=== PATIENT | female | born 1990 | race Caucasian/White ===

== ENCOUNTER → 2020-03-20 | Outpatient (CLI) | payer OTHER ==
[2020-03-20 18:20] LABS: BASO % 0.6 % (0.0-1.0); EOS # 0.1 10^3/uL (0.0-0.5); EOS % 2.5 % (0.0-3.0); HEMATOCRIT 41.6 % (36.0-47.0); HEMOGLOBIN 13.5 g/dl (12.0-15.5); LYMPH # 1.2 10^3/uL (1.5-5.0); LYMPH % 33.9 % (24.0-44.0); MEAN CORPUSCULAR HEMOGLOBIN 30.1 pg (27.0-33.0); MEAN CORPUSCULAR HGB CONC 32.5 g/dl (32.0-36.5); MEAN CORPUSCULAR VOLUME 92.7 fl (80.0-96.0); MONO # 0.3 10^3/uL (0.0-0.8); NEUTROPHILS # 1.9 10^3/uL (1.5-8.5); NEUTROPHILS % 53.7 % (36.0-66.0); PLATELET COUNT, AUTOMATED 175 10^3/uL (150-450); RED BLOOD COUNT 4.49 10^6/uL (4.00-5.40); WHITE BLOOD COUNT 3.5 10^3/uL (4.0-10.0)
[2020-03-20 18:26] LABS: ALBUMIN 3.9 GM/DL (3.2-5.2); ALT/SGPT 27 U/L (12-78); BILIRUBIN,TOTAL 0.4 MG/DL (0.2-1.0); BLOOD UREA NITROGEN 14 MG/DL (7-18); CALCIUM LEVEL 8.5 MG/DL (8.5-10.1); CARBON DIOXIDE LEVEL 26 MEQ/L (21-32); CHLORIDE LEVEL 110 MEQ/L (98-107); CHOLESTEROL LEVEL 171 MG/DL (<200); CHOLESTEROL RISK RATIO 2.035 (<5); CREATININE FOR GFR 0.75 MG/DL (0.55-1.30); FREE T4 0.95 NG/DL (0.76-1.46); GLOMERULAR FILTRATION RATE > 60.0 (>60); GLUCOSE, FASTING 86 MG/DL (70-100); HDL CHOLESTEROL 84 MG/DL (>40); LDL CHOLESTEROL 80 MG/DL (<100); NON-HDL-C 87 MG/DL; POTASSIUM SERUM 4.6 MEQ/L (3.5-5.1); SODIUM LEVEL 141 MEQ/L (136-145); TOTAL PROTEIN 7.1 GM/DL (6.4-8.2); TRIGLYCERIDES LEVEL 34 MG/DL (<150)
== END ==
LOC: M WUC 09:05
PROVIDERS: ATTEND Nurse Practitioner Family
DX: Z00.00 Encounter for general adult medical examination without abnormal findings (principal)

== ENCOUNTER → 2020-05-05 | Outpatient (CLI) | payer OTHER ==
[2020-06-09 13:43] LABS: ANTINUCLEAR ANTIBODIES DIRECT See Separate Report
[2020-06-09 13:44] LABS: ANTI-NEUTROPHIL ASSOCIATED ABY See Separate Report
[2020-06-23 13:26] LABS: FOLATE > 24.0 NG/ML; RHEUMATOID FACTOR QUANT < 10.0 IU/ML (<15.0); TOTAL PROTEIN 7.7 GM/DL (6.4-8.2); VITAMIN B12 LEVEL 430 PG/ML
[2020-06-24 11:17] LABS: BASO % 0.3 % (0.0-1.0); EOS # 0.1 10^3/uL (0.0-0.5); HEMATOCRIT 43.1 % (36.0-47.0); HEMOGLOBIN 14.3 g/dl (12.0-15.5); LYMPH # 1.6 10^3/uL (1.5-5.0); LYMPH % 27.4 % (24.0-44.0); MEAN CORPUSCULAR HEMOGLOBIN 30.7 pg (27.0-33.0); MEAN CORPUSCULAR HGB CONC 33.2 g/dl (32.0-36.5); MEAN CORPUSCULAR VOLUME 92.5 fl (80.0-96.0); MONO # 0.4 10^3/uL (0.0-0.8); MONO % 6.8 % (0.0-5.0); NEUTROPHILS # 3.8 10^3/uL (1.5-8.5); NEUTROPHILS % 64.2 % (36.0-66.0); PLATELET COUNT, AUTOMATED 189 10^3/uL (150-450); RED BLOOD COUNT 4.66 10^6/uL (4.00-5.40); WHITE BLOOD COUNT 5.9 10^3/uL (4.0-10.0)
== END ==
LOC: M LAB 11:38
PROVIDERS: ATTEND Allergy & Immunology Allergy
DX: D70.9 Neutropenia, unspecified (principal)

== ENCOUNTER → 2020-05-19 | Outpatient (REF) | payer OTHER ==
[2020-06-29 13:56] LABS: CHLAMYDIA DNA AMPLIFICATION NEGATIVE (NEGATIVE); GC DNA AMPLIFICATION NEGATIVE (NEGATIVE)
== END ==
LOC: M SFHCWAGY 11:46
PROVIDERS: ATTEND Advanced Practice Midwife
DX: Z12.4 Encounter for screening for malignant neoplasm of cervix (principal)

== ENCOUNTER → 2020-12-02 | Outpatient (REF) | payer OTHER ==
[2020-12-02 13:56] LABS: HEMOGLOBIN 13.9 g/dl (12.0-15.5); MEAN CORPUSCULAR HEMOGLOBIN 30.7 pg (27.0-33.0); MEAN CORPUSCULAR HGB CONC 33.9 g/dl (32.0-36.5); MEAN CORPUSCULAR VOLUME 90.5 fl (80.0-96.0); PLATELET COUNT, AUTOMATED 186 10^3/uL (150-450); RED BLOOD COUNT 4.53 10^6/uL (4.00-5.40); WHITE BLOOD COUNT 8.5 10^3/uL (4.0-10.0)
[2020-12-02 14:37] LABS: ALBUMIN 3.9 GM/DL (3.2-5.2); ALT/SGPT 25 U/L (12-78); BILIRUBIN,TOTAL 0.2 MG/DL (0.2-1.0); BLOOD UREA NITROGEN 13 MG/DL (7-18); CALCIUM LEVEL 8.7 MG/DL (8.5-10.1); CARBON DIOXIDE LEVEL 26 MEQ/L (21-32); CHLORIDE LEVEL 103 MEQ/L (98-107); CREATININE FOR GFR 0.58 MG/DL (0.55-1.30); FREE T4 1.09 NG/DL (0.76-1.46); GLOMERULAR FILTRATION RATE > 60.0 (>60); GLUCOSE, FASTING 83 MG/DL (70-100); POTASSIUM SERUM 4.3 MEQ/L (3.5-5.1); SODIUM LEVEL 134 MEQ/L (136-145); TOTAL PROTEIN 6.9 GM/DL (6.4-8.2)
[2020-12-02 15:19] LABS: HEPATITIS C VIRUS ABY INDEX < 0.0 INDEX (<0.8); HIV 1&2 SCREEN CENTAUR NEGATIVE (NEGATIVE)
== END ==
LOC: M PLALAB 10:27
PROVIDERS: ATTEND Advanced Practice Midwife
DX: Z3A.08 8 weeks gestation of pregnancy (principal)

== ENCOUNTER → 2021-02-25 | Outpatient (CLI) | payer OTHER ==
--- NOTE | 2021-02-25 08:32 | REP ---
INDICATION: ANATOMY COMPARISON: None. TECHNIQUE: Transabdominal obstetrical ultrasound with color Doppler evaluation. FINDINGS: Examination demonstrates a single live intrauterine in breech presentation. motion is identified by technologist. Placenta is noted posterior and grade 1 without evidence for placenta previa or abruption. Amniotic fluid volume is normal. Cervix measures 4.2 cm in length and appears closed.. Gestational age by LMP 20 weeks 2 days with IWONA 07/13/2021. Gestational age by current measurements 21 weeks 0 days with IWONA 07/08/2021. FHR equals 130 beats per minute. Estimated weight 381 grams (76thpercentile). Anatomical assessment demonstrates normal structures including cranium, choroid plexus, cavum, cerebellum/posterior fossa, facial features, lungs, four-chamber heart/ventricular outflow tracts, diaphragm, stomach, cord insertion/three-vessel cord, kidneys/bladder, spine, and extremities. IMPRESSION: Single live intrauterine in breech presentation demonstrating appropriate estimated weight. Anatomical assessment is complete and normal. No gross abnormalities are identified. <Electronically signed by Aidan Bansal > 02/25/21 [id number]
== END ==
LOC: M WHC 07:28
PROVIDERS: ATTEND Advanced Practice Midwife
DX: O26.892 Other specified pregnancy related conditions, second trimester (principal); O32.1XX0 Maternal care for breech presentation, not applicable or unspecified; Z3A.20 20 weeks gestation of pregnancy
CPT/HCPCS: 76811; G0463

== ENCOUNTER → 2021-04-25 | Outpatient (CLI) | payer OTHER ==
[2021-04-25 13:35] LABS: HEMATOCRIT 37.9 % (36.0-47.0); HEMOGLOBIN 12.7 g/dl (12.0-15.5); MEAN CORPUSCULAR HEMOGLOBIN 31.6 pg (27.0-33.0); MEAN CORPUSCULAR HGB CONC 33.5 g/dl (32.0-36.5); MEAN CORPUSCULAR VOLUME 94.3 fl (80.0-96.0); PLATELET COUNT, AUTOMATED 145 10^3/uL (150-450); RED BLOOD COUNT 4.02 10^6/uL (4.00-5.40); WHITE BLOOD COUNT 8.6 10^3/uL (4.0-10.0)
== END ==
LOC: M PLALAB 09:49
PROVIDERS: ATTEND Advanced Practice Midwife
DX: Z34.02 Encounter for supervision of normal first pregnancy, second trimester (principal); Z3A.00 Weeks of gestation of pregnancy not specified
CPT/HCPCS: 36415; 82950; 85027; 86850; 86900; 86901; G0463

== ENCOUNTER → 2021-05-02 | Outpatient (CLI) | payer OTHER | LOC: M LAB 07:09 | PROVIDERS: ATTEND Advanced Practice Midwife | DX: O99.810 Abnormal glucose complicating pregnancy (principal) ==

== ENCOUNTER → 2021-06-09 | Outpatient (REF) | payer OTHER ==
[~2021-06-09] MED LIST: IBUP80TA PO; MIRA3350 PO; PERCOCET PO; PRENTAB9 PO
== END ==
LOC: M SFHCWAGY 16:47
PROVIDERS: ATTEND Obstetrics & Gynecology
DX: Z34.03 Encounter for supervision of normal first pregnancy, third trimester (principal); Z36.85 Encounter for antenatal screening for Streptococcus B
CPT/HCPCS: 87081; 87186; G0463

== ENCOUNTER → 2021-06-22 | Outpatient (CLI) | payer OTHER ==
--- NOTE | 2021-06-23 18:30 | REP ---
INDICATION: GROWTH/UTERIN E SIZE DATE DISCREPANCY COMPARISON: 02/25/2021 TECHNIQUE: Transabdominal obstetrical ultrasound with color Doppler evaluation. FINDINGS: Examination demonstrates a single live intrauterine in cephalic presentation. motion is identified by technologist. Placenta is noted posterior and grade 2 without evidence for placenta previa or abruption. Amniotic fluid volume is greater than normal range suggesting polyhydramnios. Selected gestational age: 37 weeks 0 days with IWONA 07/13/2021. Gestational age by current measurements 37 weeks 4 days with IWONA 07/09/2021. FHR equals 155 beats per minute. BPD: 9.0 cm at 36 weeks 3 days HC: 33.3 cm at 38 weeks 0 days AC: 35.9 cm at 39 weeks 6 days FL: 7.1 cm at 36 weeks 1 day HL: 6.4 cm at 37 weeks 0 days HC/AC: 0.93 Estimated weight 3481 grams (88thpercentile). TERI: 27.9 cm (7.5-24.4) Umbilical artery SD ratio: 1.87 (1.59-3.43) IMPRESSION: Single live advanced gestation in cephalic presentation demonstrating appropriate estimated weight. Polyhydramnios suggested. <Electronically signed by Aidan Bansal > 06/23/21 [id number]
== END ==
LOC: M WHC 10:25
PROVIDERS: ATTEND Advanced Practice Midwife
DX: O26.843 Uterine size-date discrepancy, third trimester (principal); Z36.89 Encounter for other specified antenatal screening; Z3A.37 37 weeks gestation of pregnancy

== ENCOUNTER → 2021-06-22 | Outpatient (CLI) | payer OTHER ==
[2021-06-22 13:30] LABS: HEMATOCRIT 38.1 % (36.0-47.0); HEMOGLOBIN 12.8 g/dl (12.0-15.5); MEAN CORPUSCULAR HEMOGLOBIN 31.9 pg (27.0-33.0); MEAN CORPUSCULAR HGB CONC 33.6 g/dl (32.0-36.5); PLATELET COUNT, AUTOMATED 166 10^3/uL (150-450); RED BLOOD COUNT 4.01 10^6/uL (4.00-5.40)
== END ==
LOC: M PLALAB 10:47
PROVIDERS: ATTEND Advanced Practice Midwife
DX: Z36.89 Encounter for other specified antenatal screening (principal)

== ENCOUNTER 2021-07-08 10:59 | Inpatient (IN) | payer OTHER ==
[2021-07-08] VITALS (25 sets, daily range): BP systolic 129–177; BP diastolic 76–95
[~2021-07-08] VITALS: Ht 160 cm; Wt 86.1 kg
[2021-07-08] MEDS ORDERED: PRENTAB9 PO (11:27)
[2021-07-08] MEDS ORDERED: MIRA3350 PO (11:27)
[2021-07-08] MEDS ORDERED: HOME MED LIST COMPLETE! XX SCH (11:30)
[2021-07-08] MEDS ORDERED: PENICILLIN G POTASSIUM IV 5 MU in D5W MINI-BAG PLUS 100 ML IV STA ×2 (11:52→13:27)
[2021-07-08] MEDS ORDERED: LACTATED RINGER'S 1000 ML IV STA (11:52)
[2021-07-08] MEDS ORDERED: CARBOPROST TROMETHAMINE 250 MCG/ML AMP IM PRN (11:55)
[2021-07-08] MEDS ORDERED: TRANEXAMIC ACID INJection 1,000 MG in NS 100 ML IV PRN (11:55)
[2021-07-08] MEDS ORDERED: LIDOCAINE 1% MDV 20ML VIAL INFIL PRN (11:55)
[2021-07-08] MEDS ORDERED: METHYLERGONOVINE MALEATE 0.2 MG/ML VIAL (J2210) IM PRN (11:55)
[2021-07-08] MEDS ORDERED: OXYTOCIN DRIP 30 UNITS in IV 1 EA IV PRN (11:55)
[2021-07-08 12:34] LABS: HEMATOCRIT 36.3 % (36.0-47.0); HEMOGLOBIN 12.5 g/dl (12.0-15.5); MEAN CORPUSCULAR HEMOGLOBIN 31.7 pg (27.0-33.0); MEAN CORPUSCULAR HGB CONC 34.4 g/dl (32.0-36.5); MEAN CORPUSCULAR VOLUME 92.1 fl (80.0-96.0); PLATELET COUNT, AUTOMATED 135 10^3/uL (150-450); RED BLOOD COUNT 3.94 10^6/uL (4.00-5.40); WHITE BLOOD COUNT 10.8 10^3/uL (4.0-10.0)
[2021-07-08 13:06] LABS: ALT/SGPT 24 U/L (12-78); BILIRUBIN,TOTAL 0.3 MG/DL (0.2-1.0); CREATININE FOR GFR 0.51 MG/DL (0.55-1.30); GLOMERULAR FILTRATION RATE > 60.0 (>60); LDH LACTATE DEHYDROGENASE 190 U/L (84-246); URIC ACID 3.5 MG/DL (2.6-6.0)
[2021-07-08] MEDS ORDERED: OXYTOCIN DRIP 30 UNITS in IV 1 EA IV SCH (13:40)
--- NOTE | 2021-07-08 13:41 | HPEPDOC ---
Obstetrical History & Physical General Date of Admission Jul 08, 2021 at 10:59 Primary Care Physician: JENNA ANTUNEZ CNM History of Present Illness Asia is a 30-year-old female who is a at 39.2 weeks gestation with an IWONA of 07/13/21 based off of her LMP and consistent with her first trimester ult rasound. She initiated care in her first trimester of at [facility]. 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 She presents to labor and delivery after being seen in the office and being sent over for induction for polyhydramnios. Reports active movement. Denies leaking of fluid, vaginal bleeding and reports occasional cramping. Chief Complaint: Amniotic fluid index (Polyhdramnios) Information Provided By: Patient Age: 30 : 1 Term: 0 Pre-term: 0 Abortions: 0 Livin Care Care: Good Care Dating Final EDC: Jul 13, 2021 Final EDC by: LMP EGA at Admission: 39.2 Antepartum Course Diagnos(e)s GHTN diagnosed after admission Polyhydramnios Height (inches): 63 Pre- weight (lbs.): 139 Admission Weight (lbs.): 193 Change in Weight (lbs.): 54 Past Medical History Past Obstetrical History : Past Obstetrical History: Primgravida CREDIT AUTHORIZER History: Abnormal Pap, Human papillomavirus(HPV) Past Medical History Surgical History: Tonsilectomy (2019) Family History Significant Family History: Cancer (breast cancer-maternal aunt.) Social History Marital Status: Family situation: Spouse/partner home Psychosocial History: No pertinent psych hx * Smoker: non-smoker Alcohol: Denies Drugs: denies Abuse Violence Screening Have you been hit/kicked/slapp: No Have you been sexually assault: No Allergies Coded Allergies: No Known Allergies (Unverified , 07/08/21) Medications Scheduled Polyethylene Glycol 3350 (Miralax) 119 Gm Powder, 17 GRAM PO DAILY for constipation dissolve in water No.137/Iron/Folic Acd ( Vitamin Tablet) 1 Each Tablet, 1 TAB PO DAILY Physical Examination Physical Examination GENERAL: Alert and oriented times three. ABDOMEN: Gravid and non-tender to touch. FETUS: Is vertex (VTX) by sterile vaginal examination (SVE), fetus is vertex (VTX) by Ravi. EFW 8 lbs 13 oz. LUNGS: Regular rate and rhythm without use of accessory muscles. EXTREMITIES: Generalized edema. No clonus. Deep tendon reflexes (DTRs) + 2. Laboratory Data 24H LABS Laboratory Tests 2 07/08/21 11:10: Serology Scanned Report Hepatitis B Testing 07/08/21 12:17: Nucleated Red Blood Cells % (auto) 0.0, Glomerular Filtration Rate > 60.0, Uric Acid 3.5, Total Bilirubin 0.3, Aspartate Amino Transf (AST/SGOT) 18, Alanine Aminotransferase (ALT/SGPT) 24, Lactate Dehydrogenase 190 07/08/21 12:27: Coronavirus (COVID-19)(PCR) NEGATIVE CBC/BMP Laboratory Tests 07/08/21 12:17 Urine Culture: No Growth Pertinent Laboratoy Data Blood Type: A+ RBC Antibody Screen: Negative HIV: Negative Hepatitis B: Negative Hepatitis C: Negative Rapid Plasma Reagin: Nonreactive Rubella: Immune Chlamydia/Gonorrhea: Negative Group B Streptococcus: Positive Glucose Tolerance Test: 140 Anatomy Ultrasound Ultrasound Date: Jun 22, 2021 Placenta Location: Posterior Normal Anatomy: Yes Placenta Previa: No Estimated Weight (grams): 3481 Vaginal Examination Dilation: 4 cm Effacement: 100% Station: -1 Presentation: Cephalic presentation Assessment Heart Rate (FHR): 130 Variability: Moderate Accelerations: Positive Decelerations: None Tocometer Contractions: Yes Frequency: irregular Assessment/Plan Assessment IUP at 39.2 weeks gestation Category I FHR tracing GBS positive Polyhydramnios GHTN Plan Admit to L&D for induction of labor per Dr. Rod. OOB ad nalini. Diet: clears. Group B Streptococcus (GBS) positive. Start GBS antibiotics per order. Labs and intravenous (IV) per unit protocol. Counseled on Pitocin for induction of labor (IOL). Anesthesia consult per patient's request. Lactated Ringers (LR): Bolus 800 mL prior to epidural, then at 125 mL/hr. Anticipate cervical change. C-S as appropriate. JENNA ANTUNEZ CNM Jul 08, 2021 13:41
[2021-07-08] MEDS: LR 1,000 ML IV SCH (13:45)
[2021-07-08 14:21] LABS: CREATININE,RANDOM URINE 39.5 MG/DL; TOTAL PROTEIN,RANDOM URINE 7.9 MG/DL (0.0-12.0)
[2021-07-08] MEDS ORDERED: PENICILLIN G POTASSIUM IV 2.5 MU in IV 1 EA IV SCH (15:55)
[2021-07-08] MEDS: PENICILLIN G POTASSIUM IV 2.5 MU in IV 1 EA IV SCH ×2 (17:46→23:36)
--- NOTE | 2021-07-08 22:16 | IPNPDOC ---
Obstetrical Progress Note Date of Service Jul 08, 2021 Subjective Resting in bed, breathing through contractions, does not wish epidural or pain meds. Pit @ 14 Objective Vital Signs Date Time Temp Pulse Resp B/P (MAP) Pulse Ox O2 Delivery O2 Flow Rate FiO2 07/08/21 19:06 83 18 144/84 (104) 07/08/21 16:03 98.3 Assessment Heart Rate (FHR): 135 Variability: Moderate Accelerations: Positive Decelerations: None Heart Rate Tracing: Category I Tocometer Contractions: Yes Frequency: regular (q1-4) Strength: palpated as moderate Sterile Vaginal Examination Dilation: 4 cm Effacement (%): 100% Station: 0 Cervical Consistency: Soft Cervical Position: Anterior Postion/Presentation: Cephalic presentation Assessment and Plan Age: 30 : 1 Term: 0 Weeks & Days 39.2 Status: Reassuring Anticipate: Vaginal Delivery Additional Comments IV Pitocin at 14 mu/min JENNA ANTUNEZ CNM Jul 08, 2021 22:16
--- NOTE | 2021-07-08 23:33 | IPNPDOC ---
Obstetrical Progress Note Date of Service Jul 08, 2021 Subjective ambulating to restroom, breathing through contractions, back to bed for amniotomy. Objective Vital Signs Date Time Temp Pulse Resp B/P (MAP) Pulse Ox O2 Delivery O2 Flow Rate FiO2 07/08/21 19:06 83 18 144/84 (104) 07/08/21 16:03 98.3 Assessment Heart Rate (FHR): 130 Variability: Moderate Accelerations: Positive Heart Rate Tracing: Category I Tocometer Contractions: Yes Frequency: regular (q1-2) Strength: palpated as moderate Sterile Vaginal Examination Dilation: 4 cm Effacement (%): 100% Station: -1 Cervical Consistency: Soft Cervical Position: Anterior Postion/Presentation: Cephalic presentation Assessment and Plan Age: 30 : 1 EGA at Admission: 39.2 Weeks & Days 39.2 Status: Reassuring Group B Streptococcus: Positive Anticipate: Vaginal Delivery Additional Comments Pitocin at 14mu/min, AROM after consent with large amount of clear fluid, pt tolerated well. JENNA ANTUNEZ CNM Jul 08, 2021 23:33
[2021-07-09] VITALS (58 sets, daily range): BP systolic 120–178; BP diastolic 60–107
[2021-07-09] MEDS ORDERED: PROMETHAZINE INJ 25 MG/ML VIAL (J2550) IV ONE (01:00)
[2021-07-09] MEDS ORDERED: BUTORPHANOL 2 MG/ML INJ (J0595) IV ONE (01:00)
--- NOTE | 2021-07-09 01:01 | IPNPDOC ---
Obstetrical Progress Note Date of Service Jul 09, 2021 Subjective pt requesting IV pain meds, laboring on hands and knees and breathing through contractions Objective Vital Signs Date Time Temp Pulse Resp B/P (MAP) Pulse Ox O2 Delivery O2 Flow Rate FiO2 07/08/21 19:06 83 18 144/84 (104) 07/08/21 16:03 98.3 Assessment Heart Rate (FHR): 135 Variability: Moderate Accelerations: Positive Heart Rate Tracing: Category I Tocometer Contractions: Yes Frequency: regular Duration: greater than 60 seconds Strength: palpated as strong Sterile Vaginal Examination Dilation: 6 cm Effacement (%): 100% Station: -1 Cervical Consistency: Soft Cervical Position: Anterior Postion/Presentation: Cephalic presentation Assessment and Plan Age: 30 : 1 Weeks & Days 39.3 Status: Reassuring Anticipate: Vaginal Delivery Additional Comments requesting IV pain meds, stadol and phenergine JENNA ANTUNEZ CNM Jul 09, 2021 01:01
[2021-07-09] MEDS: LR 1,000 ML IV SCH ×2 (01:21→09:45)
[2021-07-09] MEDS ORDERED: FENTANYL 2MCG/ML ROPIVACAINE 0.2% IN 0.9% NACL 100ML IVBAG As Ordered ONE ×2 (04:19→11:51)
--- NOTE | 2021-07-09 04:35 | IPNPDOC ---
Obstetrical Progress Note Date of Service Jul 09, 2021 Subjective not coping well with contractions, complaining of increased pressure, requesting epidural Objective Vital Signs Date Time Temp Pulse Resp B/P (MAP) Pulse Ox O2 Delivery O2 Flow Rate FiO2 07/09/21 02:50 98.7 07/09/21 02:20 78 18 146/79 (101) Assessment Heart Rate (FHR): 135 Variability: Moderate Heart Rate Tracing: Category I Tocometer Contractions: Yes Frequency: regular Strength: palpated as strong Sterile Vaginal Examination Dilation: 7 cm Effacement (%): 100% Station: -1 Cervical Consistency: Soft Cervical Position: Anterior Postion/Presentation: Cephalic presentation Assessment and Plan Age: 30 : 1 Weeks & Days 39.3 Status: Reassuring Anticipate: Vaginal Delivery Additional Comments requesting epidural, pitocin at 14 mu/min JENNA ANTUNEZ CNM Jul 09, 2021 04:35
[2021-07-09] MEDS ORDERED: ePHEDrine SULFATE 25 MG/5 ML(5MG/ML) SYRINGE IV PRN (04:45)
[2021-07-09] MEDS ORDERED: EPIDURAL/PCA KEYS XX PRN (04:45)
[2021-07-09] MEDS ORDERED: NALOXONE INJ 0.4MG/1ML VIAL (J2310 PER 1MG) IV PRN (04:45)
[2021-07-09] MEDS ORDERED: EPIDURAL COMMENT XX SCH (04:45)
[2021-07-09] MEDS ORDERED: LACTATED RINGER'S 1000 ML IV PRN (04:45)
[2021-07-09] MEDS ORDERED: ONDANSETRON 4MG/2ML VIAL IV PRN (04:45)
[2021-07-09] MEDS ORDERED: diphenhydrAMINE 50MG/ML VIAL (J1200) IV PRN (04:45)
[2021-07-09] MEDS ORDERED: REFRIGERATOR IV KEYS XX PRN (04:45)
[2021-07-09] MEDS: PENICILLIN G POTASSIUM IV 2.5 MU in IV 1 EA IV SCH ×2 (05:58→09:45)
[2021-07-09] MEDS: FENTANYL/ROPIVACAINE/NACL BAG 100 ML EPIDURAL SCH ×2 (06:54→11:56)
[2021-07-09] MEDS ORDERED: MORPHINE PRES-FREE INJ 10 MG/10 ML VIAL (J2274) As Ordered ONE (14:47)
[2021-07-09] MEDS ORDERED: OXYTOCIN 30 UNITS IN 0.9% NaCl 500ML IV BAG (J2590) As Ordered ONE ×2 (14:48→16:02)
[2021-07-09] MEDS ORDERED: LIDOCAINE 2% W/EPINEPHRINE 20ML VIAL **PRES FREE As Ordered ONE (14:48)
[2021-07-09] MEDS ORDERED: BICITRA 30ML SOLN UDC PO ONE (14:50)
[2021-07-09] MEDS ORDERED: ceFAZolin SOD 2 GM in IV 1 EA IV ONE (14:50)
[2021-07-09] MEDS ORDERED: KETOROLAC 60MG 2ML VIAL As Ordered ONE (15:25)
[2021-07-09] MEDS ORDERED: dexameTHASONE 4 MG/ML 1ML VIAL (J1100 PER 1MG) As Ordered ONE (15:25)
[2021-07-09] MEDS ORDERED: ONDANSETRON 4MG/2ML VIAL As Ordered ONE (15:25)
[2021-07-09 15:48] LABS: CORD GAS ABE A -4.8; CORD GAS ABE V -4.8; CORD GAS HCO3 A 22.4 MEQ/L; CORD GAS HCO3 V 20.1 MEQ/L; CORD GAS O2 SAT A 65.7 %; CORD GAS O2 SAT V 94.3 %; CORD GAS PCO2 A 49.6 mmHg; CORD GAS PCO2 V 37.2 mmHg; CORD GAS PH A 7.272 UNITS; CORD GAS PH V 7.351 UNITS; CORD GAS PO2 A 31.9 mmHg; CORD GAS PO2 V 61.4 mmHg; CORD GAS SBC A 19.9 MEQ/L; CORD GAS SBC V 20.5 MEQ/L; CORD GAS TCO2 A 23.9 MEQ/L; CORD GAS TCO2 V 21.3 MEQ/L
[2021-07-09] MEDS ORDERED: SIMETHICONE 80MG CHEW TAB PO PRN (15:50)
[2021-07-09] MEDS ORDERED: MEASLES,MUMPS,RUBELLA VACCINE INJ (MMR-II) (90707) SC SCH (15:50)
[2021-07-09] MEDS ORDERED: OXYTOCIN DRIP 30 UNITS in IV 1 EA IV SCH (15:50)
[2021-07-09] MEDS ORDERED: RHOGAM 300 MCG (1500 IU) INJ (J2790) IM SCH (15:50)
[2021-07-09] MEDS ORDERED: PERCOCET 5MG/325MG TAB PO PRN (15:50)
[2021-07-09] MEDS: DOCUSATE SODIUM 100MG CAPSULE PO SCH (20:37)
[2021-07-10] MEDS: IBUPROFEN 800 MG TAB PO SCH ×3 (00:27→15:51)
[2021-07-10 05:07] VITALS: BP 119/62
[2021-07-10 07:19] LABS: HEMATOCRIT 28.4 % (36.0-47.0); HEMOGLOBIN 9.6 g/dl (12.0-15.5); MEAN CORPUSCULAR HEMOGLOBIN 31.9 pg (27.0-33.0); MEAN CORPUSCULAR HGB CONC 33.8 g/dl (32.0-36.5); MEAN CORPUSCULAR VOLUME 94.4 fl (80.0-96.0); PLATELET COUNT, AUTOMATED 151 10^3/uL (150-450); RED BLOOD COUNT 3.01 10^6/uL (4.00-5.40); WHITE BLOOD COUNT 17.2 10^3/uL (4.0-10.0)
--- NOTE | 2021-07-10 07:46 | RO ---
OPERATIVE NOTE DATE OF OPERATION: 07/09/2021 Asia is a 30-year-old female, 1, para 0, with polyhydramnios, was admitted for induction at 39 plus weeks gestation. She had progressed after an epidural to fully dilated and arrest of descent. At this point after extensive counseling, a decision was made to proceed with a primary low transverse section. PREOPERATIVE DIAGNOSIS: 1. Term with polyhydramnios. 2. Arrest of descent. POSTOPERATIVE DIAGNOSIS: 1. Term with polyhydramnios. 2. Arrest of descent. 3. macrosomia. PROCEDURE: Primary low transverse section via Pfannenstiel incision. SURGEON: Rian Jesus DO COMPLIANCE TESTER: ANESTHESIA: Epidural COMPLICATIONS: None. ESTIMATED BLOOD LOSS: 500 mL FINDINGS: Live female infant in occiput transverse position, 8 and 9, weight 9 lb, 3 oz. Normal appearing tubes and ovaries. Placenta removed manually intact, three vessel cord. DESCRIPTION OF PROCEDURE: After obtaining informed consent, the patient was taken to the operating room where epidural anesthetic was found to be adequate. She was then draped and prepped in the usual sterile fashion in the supine position. At this point, a Pfannenstiel incision was made with the first knife. This was carried down to the fascia. The fascia was incised in a midline fashion and carried through laterally. The superior aspect of the fascia was then grasped with a two Arianne clamps and tented off and dissected off the rectus muscles sharply. The inferior aspect was dissected off in a similar fashion. The rectus muscles were in midline fashion. The peritoneum was identified. The peritoneal cavity was entered bluntly. Superior and inferior dissection of the peritoneum was then done with good visualization of the bladder. At this point, a Mobius skin retractor was placed. A low transverse uterine incision was made. The infant was delivered in atraumatic fashion. The nose and mouth were bulb suctioned. The cord was doubly clamped and cut and the infant was handed over to awaiting warmer. Cord blood and cord gas were sent. The placenta was removed manually. The uterus was cleared of all clot and debris and the uterine incision was then repaired in two separate layers of 0 Vicryl sutures. All superficial bleeders were coagulated. The peritoneum was closed using 2-0 Vicryl in a running fashion. The fascia was closed in two separate segments of 0 Vicryl sutures. All superficial bleeders were coagulated and the skin was then closed in a subcuticular fashion using 3-0 Vicryl on a Rene. Steri-Strips were placed. The patient tolerated the procedure well. She was then transferred to recovery room in stable condition. [facility]
[2021-07-10] MEDS: PRENATAL VITAMINS CHEWABLE TABLET PO SCH (08:24)
[2021-07-10] MEDS: DOCUSATE SODIUM 100MG CAPSULE PO SCH ×2 (08:24→20:40)
[2021-07-10 10:01] VITALS: BP 131/63
[2021-07-10 14:12] VITALS: BP 141/82
[2021-07-10 18:00] VITALS: BP 133/78
[2021-07-10 22:00] VITALS: BP 145/70
[2021-07-11] MEDS: IBUPROFEN 800 MG TAB PO SCH ×3 (00:44→17:21)
[2021-07-11 02:00] VITALS: BP 130/70
[2021-07-11 05:24] VITALS: BP 129/82
[2021-07-11] MEDS: PRENATAL VITAMINS CHEWABLE TABLET PO SCH (09:11)
[2021-07-11] MEDS: DOCUSATE SODIUM 100MG CAPSULE PO SCH (09:11)
[2021-07-11] MEDS ORDERED: IBUP80TA PO (12:37)
[2021-07-11] MEDS ORDERED: PERCOCET PO (12:37)
[2021-07-11 18:05] VITALS: BP 139/78
--- NOTE | 2021-07-11 18:20 | DS.PDOC ---
Discharge Summary General Date of Admission Jul 08, 2021 at 10:59 Date of Discharge 07/11/21 Attending Physician: JENNA ANTUNEZ Specialist/Consultants Involve: Rian Jesus DO Discharge Summary PROCEDURES PERFORMED DURING STAY: section. ADMITTING DIAGNOSES: 1. Gestational hypertension, polyhydramnios, IOL. DISCHARGE DIAGNOSES: 1. S/P Section. COMPLICATIONS/CHIEF COMPLAINT: IOL. HISTORY OF PRESENT ILLNESS: 30 year old female, now , is day 2 post-op for section. She progressed to fully dilated but after a long second stage of labor she had an arrest of labor . She delivered a live female weighing 9#, 4086 grams. HOSPITAL COURSE: uncomplicated. DISCHARGE MEDICATIONS: Please see below. ALLERGIES: Please see below. PHYSICAL EXAMINATION ON DISCHARGE: VITAL SIGNS: Please see below. GENERAL: Alert and oriented x 3 CARDIOVASCULAR EXAMINATION: regular rate and rhythm, no murmur RESPIRATORY EXAMINATION: breathing comfortably on room air, no use of accessory muscles ABDOMINAL EXAMINATION: NTTP, Fundus -2 from umbilicus. Surgical dressing intact EXTREMITIES: no edema LABORATORY DATA: Please see below. ACTIVITY: As tolerated, pelvic rest. DIET: as tolerated DISCHARGE PLAN: Discharge to home. Incision care reviewed. Pt to remove dressing on day five. Reviewed precautions for PPH, PP depression, DVT/PE, and infection. Pelvic rest. Follow up in office for two week post-op check. DISCHARGE CONDITION: Stable. Vital Signs/I&Os Vital Signs Date Time Temp Pulse Resp B/P (MAP) Pulse Ox O2 Delivery O2 Flow Rate FiO2 07/11/21 18:05 98.3 78 18 139/78 (98) 98 Room Air I&O- Last 24 Hours up to 6 AM 07/11/21 06:00 Output Total 500 ml Balance -500 ml Discharge Medications Scheduled Polyethylene Glycol 3350 (Miralax) 119 Gm Powder, 17 GRAM PO DAILY for constipation, (Reported) dissolve in water No.137/Iron/Folic Acd ( Vitamin Tablet) 1 Each Tablet, 1 TAB PO DAILY, (Reported) Scheduled PRN Ibuprofen (Ibuprofen) 800 Mg Tablet, 800 MG PO Q8HP PRN for PAIN LEVEL 1-6 Oxycodone/Acetaminophen (Oxycodone-Acetaminophen 5-325) 1 Each Tablet, 1 TAB PO Q6HP PRN for PAIN LEVEL 7-10 Allergies Coded Allergies: No Known Allergies (Unverified , 07/08/21) JENNA ANTUNEZ CNM Jul 11, 2021 18:20
== END 2021-07-11 19:20 | disposition home or self-care (01) | DRG 773 ==
LOC: M LDI 10:59 → M OBS 07-09 17:19
PROVIDERS: ADMIT Advanced Practice Midwife; ATTEND Obstetrics & Gynecology
PROC: 3E033VJ Introduction of Other Hormone into Peripheral Vein, Percutaneous Approach (ICD-10-PCS; 2021-07-08)
PROC: 10907ZC Drainage of Amniotic Fluid, Therapeutic from Products of Conception, Via Natural or Artificial Opening (ICD-10-PCS; 2021-07-08)
PROC: 10D00Z1 Extraction of Products of Conception, Low, Open Approach (ICD-10-PCS; principal; 2021-07-09 14:47)
DX: O40.3XX0 Polyhydramnios, third trimester, not applicable or unspecified (principal); Z3A.39 39 weeks gestation of pregnancy; Z37.0 Single live birth; O13.4 Gestational [pregnancy-induced] hypertension without significant proteinuria, complicating childbirth; O99.824 Streptococcus B carrier state complicating childbirth; O32.4XX0 Maternal care for high head at term, not applicable or unspecified

== ENCOUNTER → 2021-11-29 | Outpatient (CLI) | payer OTHER ==
[2021-11-29 16:19] LABS: BASO % 0.2 % (0.0-1.0); EOS # 0.1 10^3/uL (0.0-0.5); EOS % 1.9 % (0.0-3.0); HEMATOCRIT 41.5 % (36.0-47.0); HEMOGLOBIN 13.6 g/dl (12.0-15.5); LYMPH # 1.3 10^3/uL (1.5-5.0); LYMPH % 24.3 % (24.0-44.0); MEAN CORPUSCULAR HEMOGLOBIN 30.2 pg (27.0-33.0); MEAN CORPUSCULAR HGB CONC 32.8 g/dl (32.0-36.5); MEAN CORPUSCULAR VOLUME 92.2 fl (80.0-96.0); MONO # 0.5 10^3/uL (0.0-0.8); MONO % 9.1 % (2.0-8.0); NEUTROPHILS # 3.4 10^3/uL (1.5-8.5); NEUTROPHILS % 64.1 % (36.0-66.0); PLATELET COUNT, AUTOMATED 206 10^3/uL (150-450); WHITE BLOOD COUNT 5.3 10^3/uL (4.0-10.0)
[2021-11-29 16:49] LABS: BLOOD UREA NITROGEN 13 MG/DL (7-18); CALCIUM LEVEL 8.9 MG/DL (8.5-10.1); CARBON DIOXIDE LEVEL 29 MEQ/L (21-32); CHLORIDE LEVEL 104 MEQ/L (98-107); CREATININE FOR GFR 0.79 MG/DL (0.55-1.30); GLOMERULAR FILTRATION RATE > 60.0 (>60); GLUCOSE, FASTING 86 MG/DL (70-100); MAGNESIUM LEVEL 2.1 MG/DL (1.8-2.4); POTASSIUM SERUM 4.2 MEQ/L (3.5-5.1); SODIUM LEVEL 140 MEQ/L (136-145)
[2021-11-29 18:08] LABS: ERYTHROCYTE SEDIMENTATION RATE 13 mm/hr (0-20)
== END ==
LOC: M WUC 13:17
PROVIDERS: ATTEND Nurse Practitioner Family
DX: R07.89 Other chest pain (principal)